=== PATIENT | male | born 1940 | race Caucasian/White ===

== ENCOUNTER → 2016-07-17 | Day surgery (SDC) | payer BC, MEDICARE ==
[~2016-07-17] VITALS: Ht 177.8 cm; Wt 106.0 kg
[~2016-07-17] MED LIST: BUPIVACAINE HCL PF 0.5% 30 ML VIAL ONE; FAMOTIDINE 20 MG/2 ML VIAL ONE; LACTATED RINGER'S 1000 ML INJ 1,000 ML ONE; LIDOCAINE HCL 2% 50 ML VIAL ONE; MIDAZOLAM HCL 2 MG/2 ML VIAL ONE; NEOMYCIN/POLYMYXIN 1 ML G.U. IRRIGANT TOPICAL ONE; PROPOFOL 200 MG/20 ML AMP IV ONE; SODIUM CHLORIDE 0.9% INJ 50 ML ONE; ceFAZolin 2 GM PREMIX 50 ML ONE; ceFAZolin INJ 1,000 MG VIAL ONE
[2016-07-17 07:13] LABS: HEMATOCRIT 44.9 % (39.0-51.0); MEAN CELL VOLUME 87.8 FL (80.0-100.0); MEAN CORPUSCULAR HEMOGLOBIN 29.5 PG (27.0-34.0); MEAN CORPUSCULAR HGB CONC 33.7 % (32.0-36.0); PLATELET COUNT 104 TH/MM3 (150-450); RED BLOOD COUNT 5.11 MIL/MM3 (4.50-5.90); RED CELL DISTRIBUTION WIDTH 14.3 % (11.6-17.2); REVIEW FLAG FINAL; WHITE BLOOD COUNT 5.3 TH/MM3 (4.0-11.0)
[2016-07-17 07:22] VITALS: BP 165/87; PULSE 59; RESP 20; TEMP 97.5; O2SAT 99
[2016-07-17 09:30] VITALS: BP 140/72; PULSE 58; RESP 16; TEMP 97; O2SAT 98
--- NOTE | 2016-07-17 10:26 | MP ---
cc: WILLIAM ALVAREZ III, M.D. DATE OF SURGERY: 07/17/2016 PREOPERATIVE DIAGNOSIS Right middle finger mucous cyst. PROCEDURE Right middle finger mucous cyst excision. SURGEON William Alvarez III, MD PROCEDURE The patient was brought to the operating room and placed supine on the operating table. After the correct site and side of surgery were verified by members of each team in the room multiple times including the patient, myself and after adequate preoperative markings, preoperative written consent were verified by everyone and after adequate preoperative time-out was performed to everyone's satisfaction, after adequate IV sedation had been achieved, the right upper extremity was prepped and draped in traditional sterile surgical fashion. Digital block was put in place using a 50/50 mixture of 2% plain lidocaine and 0.5% plain Marcaine with injection at the metacarpal level. Two small fingers from size 6 sterile glove were used as a finger tourniquet which was put in place and this was kept on for 21-minutes. A T-shaped incision dorsally over the DIP joint was made and carried down through skin and subcutaneous tissue. Blunt dissection was performed. Inflammatory tissue superficial to the extensor tendon was then sharply debrided, a defect creating a tract up to the mucous cyst was identified and tracked proximally. This area was debrided sharply and curettage with a small curette was performed. The underside of the skin was also abraded. There was no obvious osteophytes and the tendinous insertion into the distal phalanx appeared to be normal and unaffected. Thorough irrigation was performed. The area of the defect was closed with 4-0 Vicryl sutures imbricating part of the tendon. Thorough irrigation with saline was performed several times and the skin edges were reapproximated using running 5-0 Nylon sutures with a few interrupted sutures to augment it. The finger was perfectly extended. The tourniquet was released and the middle finger became immediately soft, pink, warm and had brisk capillary refill of less than 2 seconds. There was no bleeding or hematoma formation. Capillary refill was less than 2 seconds in the tip of the finger the entire time following this. Betadine and Adaptic dressing was applied on top of the wound followed by a bulky soft dressing and lightly placed circumferential dressing in the usual fashion. The patient was awakened from anesthesia and transported to the Post Anesthesia Care Unit awake and in stable condition. MD JESSI Raymundo III/JANETTE /9:26 AM /10:08 AM
--- NOTE | 2016-07-18 12:11 | EKG ---
Date Performed: 07/17/2016 Time Performed: 07:36:42 PTAGE: 75 years EKG: Sinus bradycardia. Normal ECG except for rate NO PREVIOUS TRACING DOCTOR: Juan Beauchamp Interpretating Date/Time 07/18/2016 12:10:59
== END | disposition home or self-care (01) ==
LOC: PHSDC 06:14
PROVIDERS: ATTEND Orthopaedic Surgery Hand Surgery
DX: M25.841 Other specified joint disorders, right hand (principal); J44.9 Chronic obstructive pulmonary disease, unspecified; F10.10 Alcohol abuse, uncomplicated; E66.9 Obesity, unspecified; Z68.33 Body mass index [BMI] 33.0-33.9, adult; Z96.653 Presence of artificial knee joint, bilateral
CPT/HCPCS: 26160; 36415; 85027; 93005; J0690; J2250; J7120